=== PATIENT | female | born 1995 ===

== ENCOUNTER 2023-11-25 16:48 | Inpatient (IN) | payer OTHER ==
[2023-11-25] MEDS ORDERED: Misoprostol 200 MCG TAB PR PRN (16:53)
[2023-11-25] MEDS ORDERED: Ibuprofen 800 MG TAB PO PRN (16:53)
[2023-11-25] MEDS ORDERED: HYDROcodone/Acetaminophen 5/325 mg Tablet PO PRN ×2 (16:53)
[2023-11-25] MEDS ORDERED: Promethazine HCl 25 MG/ML VIAL IM PRN (16:53)
[2023-11-25] MEDS ORDERED: Ondansetron PF 4 MG/2 ML Vial IVP PRN (16:53)
[2023-11-25] MEDS ORDERED: Tranexamic Acid 1,000 MG/10 ML VIAL IVP PRN (16:53)
[2023-11-25] MEDS ORDERED: Lidocaine 1% (PF) 30 ML VIAL SC PRN (16:53)
[2023-11-25] MEDS ORDERED: hydrALAZINE 20 MG/ML VIAL SLOW IVP PRN (16:53)
[2023-11-25] MEDS ORDERED: Carboprost 250 MCG/ML AMP IM PRN (16:53)
[2023-11-25] MEDS ORDERED: fentaNYL 50 mcg/mL 1 mL Vial SLOW IVP PRN (16:53)
[2023-11-25] MEDS ORDERED: Oxytocin 30 units/NS 500 ML 500 ML IV SCH ×2 (17:00)
[2023-11-25 17:55] VITALS: BMI 28.6
[2023-11-25] MEDS: Lactated Ringer's 1,000 ML IV SCH (18:21)
[2023-11-25] MEDS: Penicillin G Potassium 5 MILL.UNITS in Sodium Chloride 0.9% 100 ML IVPB SCH (18:21)
[2023-11-25] MEDS: Misoprostol 100 MCG TAB PO SCH (18:38)
[2023-11-25 18:53] LABS: Hematocrit 36.2 % (34.9-44.5); Hemoglobin 12.4 g/dL (12.0-15.5); Mean Corpuscular HGB CONC 34.3 g/dL (32.0-36.0); Mean Corpuscular Hemoglobin 30.5 pg (27.0-33.0); Mean Corpuscular Volume 88.9 fL (81.6-98.3); Mean Platelet Volume 11.3 fL (7.4-10.4); Platelet Count 189 10x3/uL (150-450); RBC Distribution Width 14.2 % (11.5-14.5); Red Blood Cell (RBC) Count 4.07 10x6/uL (3.90-5.03); White Blood Cell (WBC) Count 11.1 10x3/uL (3.5-10.5)
[2023-11-25 19:16] LABS: Syphilis Antibody Nonreactive (Nonreactive); Syphilis Antibody Index 0.06 S/CO (<1.00 Non-Reactive)
[2023-11-25 19:18] LABS: HBsAg Index 0.18 S/CO (0-0.99); Hep B Surf Ag - L&D Non-Reactive S/CO (NonReactive)
[2023-11-25] MEDS: Penicillin G 2.5 MILL.units 2.5 MILL.UNITS in Premix 1 BAG IVPB SCH (22:35)
[2023-11-26] MEDS: fentaNYL/Ropivacaine Epidural 100 ML ONE (12:57)
[2023-11-26] MEDS ORDERED: Naloxone HCl 0.4 mg/ml Vial IVP PRN ×2 (13:43)
[2023-11-26] MEDS ORDERED: Ondansetron PF 4 MG/2 ML Vial IVP PRN (13:43)
[2023-11-26] MEDS ORDERED: diphenhydrAMINE 50 MG/ML VIAL IVP PRN (13:43)
[2023-11-26] MEDS ORDERED: Acetaminophen 325 MG TAB PO PRN (13:43)
[2023-11-26] MEDS ORDERED: ePHEDrine Sulfate 50 MG/10 ML VIAL SLOW IVP PRN (13:43)
[2023-11-26] MEDS ORDERED: Lactated Ringer's 500 ML IV PRN (13:43)
[2023-11-26] MEDS ORDERED: Moisturizing Cream (Eucerin) 113 GM JAR TOP PRN (13:43)
[2023-11-26] MEDS ORDERED: Promethazine HCl 25 MG/ML VIAL IM PRN (13:43)
[2023-11-26] MEDS ORDERED: Communication Order-Pharmacy FS SCH (13:45)
[2023-11-26] MEDS ORDERED: fentaNYL 2 mcg/Ropivacaine 0.2% Epidural 100 ML CADD EPIDURAL SCH (13:45)
[2023-11-26] MEDS: Methylergonovine 0.2 MG/ML VIAL IM PRN (19:28)
[2023-11-26] MEDS ORDERED: Milk Of Magnesia 30 ML UDCUP PO PRN (20:53)
[2023-11-26] MEDS ORDERED: hydrALAZINE 20 MG/ML VIAL SLOW IVP PRN (20:53)
[2023-11-26] MEDS ORDERED: Bisacodyl 10 MG SUPP PR PRN (20:53)
[2023-11-26] MEDS ORDERED: Lanolin Ointment 7 GM TUBE TOP PRN (20:53)
[2023-11-26] MEDS ORDERED: Oxytocin 30 units/NS 500 ML 500 ML IV SCH (20:53)
[2023-11-26] MEDS ORDERED: Misoprostol 200 MCG TAB VAG PRN (20:53)
[2023-11-26] MEDS: Docusate 100 MG CAP PO SCH (21:56)
[2023-11-26] MEDS: Ibuprofen 800 MG TAB PO SCH (21:56)
[2023-11-26] MEDS: Benzocaine-Menthol 82.5 ML CAN TOP PRN (21:57)
[2023-11-27 04:30] LABS: #Basophils 0.03 10x3/uL (0.0-0.2); #Eosinphils 0.11 10x3/uL (0.0-0.5); #Monocytes 1.26 10x3/uL (0.0-1.1); #Neutrophils 11.48 10x3/uL (1.5-8.4); %Basophils 0.2 % (0.0-2.0); %Eosinophils 0.7 % (0.0-6.0); %Lymphocytes 13.3 % (18.0-47.0); %Monocytes 8.4 % (0.0-10.0); %Neutrophils 76.1 % (40.0-75.0); Hematocrit 32.2 % (34.9-44.5); Mean Corpuscular HGB CONC 34.2 g/dL (32.0-36.0); Mean Corpuscular Hemoglobin 30.7 pg (27.0-33.0); Mean Corpuscular Volume 89.9 fL (81.6-98.3); Mean Platelet Volume 11.7 fL (7.4-10.4); Platelet Count 146 10x3/uL (150-450); Red Blood Cell (RBC) Count 3.58 10x6/uL (3.90-5.03); White Blood Cell (WBC) Count 15.1 10x3/uL (3.5-10.5)
[2023-11-27] MEDS: Chloroprocaine 3% PF 20 ML VIAL ONE (08:11)
[2023-11-27] MEDS: Morphine PF 10 MG/10 ML VIAL ONE (08:11)
[2023-11-27] MEDS: Oxytocin 10 UNITS/ML VIAL ONE (08:11)
[2023-11-27] MEDS: Ketorolac Tromethamine 30 MG (1 mL) VIAL ONE (08:11)
[2023-11-27] MEDS: Dexamethasone 4 mg/ml Vial ONE (08:11)
[2023-11-27] MEDS: Ondansetron PF 4 MG/2 ML Vial ONE (08:11)
[2023-11-27] MEDS: Boostrix 0.5 ML (Tdap) VIAL (>/=7 yrs of age) IM ONE (08:11)
[2023-11-27] MEDS: Ferrous Sulfate 325 MG TAB PO SCH (08:12)
[2023-11-27] MEDS: HYDROcodone/Acetaminophen 5/325 mg Tablet PO PRN (08:26)
[2023-11-27] MEDS: Prenatal Vitamin 1 TAB PO SCH (08:26)
[2023-11-28] MEDS: HYDROcodone/Acetaminophen 5/325 mg Tablet PO PRN (10:37)
[2023-11-28 16:02] VITALS: BP 117/75; TEMP 97.7
== END 2023-11-28 15:00 | disposition home or self-care (01) | DRG 807 ==
LOC: CSHLD 16:48 → CSHPP 11-26 21:00
PROVIDERS: ADMIT Obstetrics & Gynecology; ATTEND Obstetrics & Gynecology
PROC: 10E0XZZ Delivery of Products of Conception, External Approach (ICD-10-PCS; principal; 2023-11-26)
PROC: 0UQMXZZ Repair Vulva, External Approach (ICD-10-PCS; 2023-11-26)
PROC: 0UQGXZZ Repair Vagina, External Approach (ICD-10-PCS; 2023-11-26)
DX: O42.92 Full-term premature rupture of membranes, unspecified as to length of time between rupture and onset of labor (principal); Z37.0 Single live birth; Z3A.38 38 weeks gestation of pregnancy; O70.0 First degree perineal laceration during delivery
CPT/HCPCS: 36415; 51702; 85025; 85027; 85461; 86780; 86850; 86870; 86900; 86901; 87340; 90384; 96372; J1100; J1885; J2210; J2274; J2401; J2405; J2540; J2590; J3490; J7120